=== PATIENT | male | born 1955 | race Two or more races ===

== ENCOUNTER 2019-09-24 09:30 | Inpatient (IN) | payer OTHER ==
[~2019-09-24] VITALS: Ht 167.6 cm; Wt 92.5 kg
--- NOTE | 2019-11-17 11:00 | NUR ---
[employer] translation services used to obtained medical history in Greenlandic with home health manager Marie ID # [id number].
[2019-11-19] VITALS (15 sets, daily range): BP systolic 127–155; BP diastolic 78–103
[2019-11-19] MEDS ORDERED: ceFAZolin sod 2 GM in NS 55 ML IVPB ONE (07:00)
--- NOTE | 2019-11-19 07:25 | Pre-Procedure Note/Attestation ---
Pre-Procedure Note/Attestation Complete Prior to Procedure Planned Procedure: not applicable Procedure Narrative: C56 artificial disc replacement Indications for Procedure Pre-Operative Diagnosis: C56 herniation Attestation I attest that I discussed the nature of the procedure; its benefits; risks and complications; and alternatives (and the risks and benefits of such alternatives ), prior to the procedure, with the patient (or the patient's legal delivery representative). I attest that, if there was a reasonable possibility of needing a blood transfusion, the patient (or the patient's legal delivery representative) was given the [facility] standardized written summary, pursuant to the Adal Brecken[place] Blood Safety Act ([place] Health and Safety Code # 1645, as amended). I attest that I re-evaluated the patient just prior to the surgery and that there has been no change in the patient's H&P, except as documented below: Casey Lockett MD November 19, 2019 07:25
--- NOTE | 2019-11-19 07:26 | Brief Operative Note ---
Immediate Post Operative Note Operative Note Chief Complaint: neck pain and radiculopathy Pre-op Diagnosis: C56 herniation Procedure: C56 artificial disc replacement Post-op Diagnosis: same as pre-op Findings: consistent w/pre-op dx studies Surgeon: Levy Heavy Duty Custodian: Larry Anesthesiologist: Oren Anesthesia: general Specimen: none Complications: none Condition: stable Fluids: IVF Estimated Blood Loss: minimal Drains: none Implant(s) used?: Yes - prodisc c sz 5 Casey Lockett MD November 19, 2019 07:26
[2019-11-19] MEDS ORDERED: Naloxone 0.4mg/ml Inj IVP PRN (07:30)
[2019-11-19] MEDS ORDERED: Morphine Sulfate 2mg/ml Inj(IV/IM USE ONLY) IV PRN (07:30)
[2019-11-19] MEDS ORDERED: HYDROmorphone 1mg/ml Carpuject IVP PRN (07:30)
[2019-11-19] MEDS ORDERED: HYDROcodone/Acetamin 7.5/325 tab ORAL PRN ×3 (07:30→08:15)
[2019-11-19] MEDS ORDERED: Morphine Sulfate 4mg/ml Inj (IV USE ONLY) IV PRN ×2 (07:30)
[2019-11-19] MEDS ORDERED: Chloraseptic Spray 20mL Bottle ORAL PRN (07:30)
[2019-11-19] MEDS ORDERED: Metoclopramide 10mg/2ml Inj IVP PRN ×2 (07:30→08:15)
[2019-11-19] MEDS ORDERED: HYDROcodone/Acetamin 5/325 tab ORAL PRN ×2 (07:30→08:15)
[2019-11-19] MEDS ORDERED: LR 1000ml 1,000 ML IVLG SCH (08:10)
--- NOTE | 2019-11-19 08:14 | Anethesia Preoperative Eval ---
Anesthesia Pre-op PMH/ROS General Date of Evaluation: November 19, 2019 Time of Evaluation: 09:38 Anesthesiologist: Oren ASA Score: ASA 2 Mallampati Score Class I : Soft palate, uvula, fauces, pillars visible Class II: Soft palate, uvula, fauces visible Class III: Soft palate, base of uvula visible Class IV: Only hard plate visible Mallampati Classification: Class II Surgeon: Levy Diagnosis: Neck Pain Surgical Procedure: ACDF C5-6 Anesthesia History: none Family History: no anesthesia problems Allergies: Coded Allergies: No Known Allergies (Unverified , 11/19/19) Medications: see eMAR Patient NPO?: Yes Past Medical History Cardiovascular: Reports: HTN Hematology/Immune: Reports: anemia Other: obesity - BMI 33 Anesthesia Pre-op Phys. Exam Physician Exam Last Vital Signs Date Time Temp Pulse Resp B/P (MAP) Pulse Ox O2 Delivery O2 Flow Rate FiO2 11/19/19 07:56 Room Air 11/19/19 07:55 97.7 78 20 133/86 (102) 98 Constitutional: NAD Neurologic: CN 2-12 intact Cardiovascular: RRR Respiratory: CTA Gastrointestinal: S/NT/ND Airway Exam Mallampati Score: Class II MO: full ROM: limited Teeth: missing Dentures: upper, lower Anesthesia Pre-op A/P Risk Assessment & Plan Assessment: ASA 2 Plan: GA, SED, GlideScope Status Change Before Surgery: No Pre-Antibiotics Dru Grams Ancef IV Given Within 1 Hr of Incision: Yes Time Given: 09:51 Jeet Lott MD November 19, 2019 08:14
[2019-11-19] MEDS ORDERED: oxyCODONE HCL/Acetaminophen 5/325mg ORAL PRN (08:15)
[2019-11-19] MEDS ORDERED: Labetalol 5mg/ml 20ml vial IV PRN (08:15)
[2019-11-19] MEDS ORDERED: Ketorolac 30mg Inj IV PRN ×2 (08:15)
[2019-11-19] MEDS ORDERED: LORazepam Inj 2mg/ml 1ml IV PRN (08:15)
[2019-11-19] MEDS ORDERED: Meperidine 25mg/0.5ml Inj (FOR RIGORS ONLY) IV PRN (08:15)
[2019-11-19] MEDS ORDERED: DiphenhydrAMINE 50mg/ml Inj IVP PRN (08:15)
[2019-11-19] MEDS ORDERED: fentaNYL 100 mcg/2 mL IV PRN (08:15)
[2019-11-19] MEDS ORDERED: Acetaminophen (Non formulary) 100 ML IV ONE (08:15)
[2019-11-19] MEDS ORDERED: Atropine Sulfate 0.4mg/ml inj IVP PRN (08:15)
[2019-11-19] MEDS ORDERED: Midazolam 2mg/2ml Inj IVP PRN (08:15)
[2019-11-19] MEDS ORDERED: Hydromorphone 0.5mg/0.5ml inj IVP PRN (08:15)
--- NOTE | 2019-11-19 08:15 | Immediate Post-Op Evaluation ---
Immediate Post-Op Evalulation Immediate Post-Op Evalulation Procedure: ACDF C5-6 Date of Evaluation: November 19, 2019 Time of Evaluation: 11:54 IV Fluids: 600 LR Blood Products: 0 Estimated Blood Loss: 50 Urinary Output: 200 Blood Pressure Systolic: 155 Blood Pressure Diastolic: 103 Pulse Rate: 78 Respiratory Rate: 16 O2 Sat by Pulse Oximetry: 98 Temperature (Fahrenheit): 97.1 Pain Score (1-10): 2 Nausea: No Vomiting: No Complications 0 Patient Status: awake, reacts, patent, extubated, none Hydration Status: adequate Dru Grams Ancef IV Given Within 1 Hr of Incision: Yes Time Given: 09:51 Jeet Lott MD November 19, 2019 08:15
[2019-11-19] MEDS ORDERED: fentaNYL 100 mcg/2 mL IV ONE ×2 (08:24→10:58)
[2019-11-19] MEDS ORDERED: Lidocaine 1% MPF 10mg/ml 5ml ONE (08:27)
[2019-11-19] MEDS ORDERED: Sodium Chloride 10ml vial INJ ONE (08:27)
[2019-11-19] MEDS ORDERED: Lidocaine 1% Plain 30 ml INJ ONE (08:38)
[2019-11-19] MEDS ORDERED: Glycopyrrolate 0.2mg/ml 1ml Vial ONE ×2 (08:53→11:08)
--- NOTE | 2019-11-19 08:56 | General Progress Note ---
Assessment/Plan Assessment/Plan: neck pain and radiculopathy C56 herniation ACDF PLAN 1. incentive spirometry 2. SCD 3. PT evaluation and therapy 4. Hydration 5. Pain management 6. discharge once stable with outpatient follow up Subjective Allergies: Coded Allergies: No Known Allergies (Unverified , 11/19/19) Subjective asked to follow up postop Objective Last 24 Hour Vital Signs Date Time Temp Pulse Resp B/P (MAP) Pulse Ox O2 Delivery O2 Flow Rate FiO2 11/19/19 07:56 Room Air 11/19/19 07:55 97.7 78 20 133/86 (102) 98 Height (Feet): 5 Height (Inches): 7.00 Weight (Pounds): 204 Javi Barriga MD November 19, 2019 08:56
[2019-11-19] MEDS ORDERED: Vancomycin 1gm vial IVPB ONE (09:17)
[2019-11-19] MEDS ORDERED: Thrombin 5000 units TOPIC ONE (09:17)
[2019-11-19] MEDS ORDERED: Bacitracin 50000 Units Vial ONE (09:17)
[2019-11-19] MEDS ORDERED: Gelfoam Size TOPIC ONE (09:17)
[2019-11-19] MEDS ORDERED: Rocuronium Bromide 100mg/10ml Inj IV ONE (09:29)
[2019-11-19] MEDS ORDERED: LR 1000ml ONE (09:30)
[2019-11-19] MEDS ORDERED: propofoL 1,000mg/100ml IV ONE (09:30)
[2019-11-19] MEDS ORDERED: Sterile Water Irrig 1000ml IRRIG ONE (09:30)
[2019-11-19] MEDS ORDERED: NS Irrig 1000ml ONE (09:30)
[2019-11-19] MEDS ORDERED: Neostigmine 1mg/ml 10ml Inj ONE (11:08)
--- NOTE | 2019-11-19 13:12 | NUR ---
NURSE NOTES: Handoff received from Isis CHILEL. Patient arrived to 3E safely and in stable condition, awake and alert x4. Vital signs on arrival are stable, Neuro check on arrival is WNL. Right hand 18g is patent and asymptomatic. Surgical site on anterior neck is dry and intact. Open skin is noted on right neck, per Isis CHILEL this is from surgical instrument used to hold neck and head. SCDs are on. Bed is low and locked, side rails up x2, call light within reach.
--- NOTE | 2019-11-19 13:50 | Diagnostic Imaging Report ---
INDICATION: Pain, intraoperative TECHNIQUE: Intraoperative imaging Fluoroscopy time: Origin 0.5 seconds Total dose: 0.17030 mGym2 Total number of images: 3 COMPARISON: None FINDINGS: Intraoperative images demonstrate a surgical tool projected at the anterior aspect of the C6 vertebral body. Subsequent images document anterior fusion and placement of a disc spacer at C5-6. IMPRESSION: Intraoperative imaging, as described
--- NOTE | 2019-11-19 13:59 | NUR ---
CASE MANAGEMENT: INITIAL REVIEW 64YR OLD MALE FROM HOME HERE FOR SURGERY CC: BACK PAIN SI:HERNIATED C5-6 97.7 78 20 133/86 98% ON RA IS:IN SURGERY NOW C5-6 ARTIFICIAL DISC REPLACEMENT \: TO MED SURG UNIT WHEN STABLE
--- NOTE | 2019-11-19 14:00 | NUR ---
NURSE NOTES: Patient was given PT instructions regarding movement precautions for spinal surgery.
--- NOTE | 2019-11-19 14:00 | NUR ---
P.T Note: P.T evaluation completed and tx initiated per spina protocol. Pt provided P.T instructions re: spinal/movement precaution an proper body mechanics to incorporate in ADL/functional mobilities thru written handouts, discussion and practice. After instructions pt was able to return demonstration and verbalize understanding. Pt is now currently functioning safely and independently within surgical guidelines . Pt is cleared for DC to home if medically stable and cleared by Physician.
[2019-11-19] MEDS ORDERED: NS w/KCl 20mEq 1000ml 1,000 ML IV SCH (15:00)
--- NOTE | 2019-11-19 15:30 | NUR ---
NURSE NOTES: Patient was able to void and tolerated post op cervical diet well. No complaints of pain or N/V.
--- NOTE | 2019-11-19 16:40 | NUR ---
NURSE NOTES: Dr. Lockett was contacted regarding patient's d/c order and med rec. Waiting for MD response.
[2019-11-19] MEDS ORDERED: Docusate 100mg cap ORAL SCH (18:00)
[2019-11-19] MEDS ORDERED: ceFAZolin sod 1 GM in D5W 55 ML IV SCH (18:00)
--- NOTE | 2019-11-19 19:20 | NUR ---
NURSE NOTES: Received report from RANJANA Hamlin. Rounds done, patient in stable condition. IV site intact, IVF infusing well. Patient tolerating po well. Anterior neck incision clean and dry, JANE with Dermabond. No s/s of infection noted. VSS. Provided discharge instructions. Will continue to monitor.
--- NOTE | 2019-11-19 19:25 | NUR ---
HAND-OFF: Report given to Stephanie CHILEL.
--- NOTE | 2019-11-19 22:10 | NUR ---
NURSE NOTES: All discharge instructions provided by charge nurse, patient verbalized understanding. Prescription given as requested by MD. Condition stable, VSS. IV discontinued, ID bands cut and patient discharged home via private car. Aware of follow up appt and s/s to report.
--- NOTE | 2019-11-20 10:45 | Operative Note - Dictated ---
DATE OF OPERATION: 11/19/2019 SURGEON: Casey Lockett MD, orthopedic spine surgeon. CO-SURGEON: Ruben Juarez MD. PREOPERATIVE DIAGNOSES: 1. Intractable neck pain. 2. Radiculopathy. 3. Herniation, C5-C6. 4. Neural foraminal stenosis C5-C6. 5. Stenosis. POSTOPERATIVE DIAGNOSES: 1. Intractable neck pain. 2. Radiculopathy. 3. Herniation, C5-C6. 4. Neural foraminal stenosis C5-C6. 5. Stenosis. PROCEDURE PERFORMED: 1. Anterior cervical discectomy and fusion of C5-C6 using Nuvasive Interlock Cage, size 6, a total of 1 mL of Osteocel three 13 mm screws, with the insertion of allograft Osteocel bone. 2. Use of intraoperative microscope. 3. Motor evoked potential monitoring. 4. Somatosensory evoked potential monitoring. 5. Supervision and interpretation of fluoroscopy. COMPLICATIONS: None. ANESTHESIA: General. ESTIMATED BLOOD LOSS: Less than 100 mL. INDICATIONS FOR SURGERY: This patient is a 64-year-old male who has a history of intractable neck pain, radiculopathy, herniation, C5-C6, neural foraminal stenosis C5-C6, stenosis. We tried a course of conservative management but despite this course there was still a significant component of persistent, recalcitrant neck pain and arm pain. The MRI demonstrated significant neural foraminal compromise secondary to disc herniations at C5-C6. We had a long discussion with Bryan regarding the risks and benefits of surgery. Our discussion included but was not limited to nonoperative management, chiropractic management, another epidural steroid injection as well definitive management in the form of surgery. We recommended an anterior cervical discectomy and fusion of C5-C6 using Nuvasive Interlock Cage, size 6, a total of 1 mL of Osteocel three 13 mm screws, with the insertion of allograft Osteocel bone as final definitive management. We reviewed the risks and benefits of surgery with the patient. Our discussion included a comprehensive review of the clinical issues and the nature of the clinical decision. We reviewed the alternatives, including doing nothing. The patient elected to proceed accordingly with anterior cervical discectomy and fusion of C5-C6. We had a long discussion regarding the risks, alternatives and benefits of surgery. Our description of the risks included a discussion in person as well as a signed consent which detailed all pertinent risks from the procedure itself. Briefly, our discussion included but was not limited to infection, bleeding, pseudarthrosis, spinal cord injury, neurovascular injury, dural tear, CSF leak, neuropathy, paralysis, permanent weakness/drop foot/drop arm, paresthesias, blindness, palsy and weakness. The patient understood there may be a need for a revision surgery or additional procedures. Approach-related complications including dysphonia, dysphagia, blindness, permanent vocal cord and neural injury, hematoma, swallowing and breathing difficulty. Medical complications were reviewed including liver, kidney, shock, cardiopulmonary failure, anesthesia complications including , swelling, damage to the musculature, larynx/voice injury or loss, esophagus/throat, trachea, blood vessels and muscles/muscular sprain and lungs/pneumothorax during this surgical procedure; injury to deeper structures may be temporary or permanent. After this review of risks, the patient understood these and elected to proceed. A written and verbal consent was given. We discussed the pros and cons of all the alternatives. We discussed the uncertainties associated with the decision. Afterwards I assessed the patient's understanding and explored their preferences. All questions were answered and no guarantees were given. Medical clearance was obtained prior to surgery. INTRAOPERATIVE FINDINGS: At C5-C6, I did not appreciate any dessication of the disk as we tend to see with degenerative processes. The disc itself was spongy and soft throughout and there was a tear noted along the posterior longitudinal ligament on the right side which is more consistent with a traumatic herniation. This tear was approximately 10 degrees cephalad to caudad. This was probed with a micro-set 1-B and 2-B curet as it led to the discovery of a herniated fragment posterior to the tear, which was encroaching on the spinal cord, thecal sac, and neural foraminal elements. The disc itself was resected. It was spongy, soft, not calcified or granular. The tear in the posterior longitudinal ligament led me to believe this is more traumatic in nature combined with a lack of degenerative findings seen during surgery. The disc itself was resected until we got the spinal cord, thecal sac, and neural elements. DESCRIPTION OF PROCEDURE: Under the benefit of general endotracheal anesthesia and with the assistance of the entire operative team, the patient was moved from the rney onto the operative table in the supine position. The head was secured and carefully positioned appropriately. Bilateral arms were secured with Gelpads and foam and all bony prominences were padded. For the bilateral lower extremities SCD and LYLY hose were placed for DVT prophylaxis. A surgical timeout was called which corroborated our planned procedure of anterior cervical discectomy and fusion of C5-C6. Preoperative antibiotics were administered within 30 minutes of the incision for antibiotic prophylaxis. Using lateral fluoroscopic radiography, the operative levels were delineated. Next the wound was prepped and draped with Chlorhexidine and sterile drapes. An incision was based on lateral fluoroscopy and we centered our incision at the C5-C6 interspace and next using a standard Roberts-Lazar anterior based approach the incision was taken down through the skin and subcutaneous tissues until the vertebral bodies and their corresponding disc spaces were visualized. A needle was placed into the interspace to confirm placement of the operative interspace and we performed the remainder of procedure under microscopic visualization. Next, using a bipolar and Bovie cautery to ensure meticulous hemostasis, the longus colli was mobilized bilaterally and retractors were placed deep to the longus colli bilaterally to address retraction. Next we turned our attention to the radical anterior discectomy. This was initially performed at C5-C6. First by using a 15 blade scalpel followed by narrow pituitaries and a micro-sect 5-B curette was used to denude the endplate of all cartilaginous tissue. Next using a [employer] Zach AM8 drillbit the vertebral endplates were carefully denuded until visualization of the posterior longitudinal ligament was possible. An endplate preparation was performed in the exact same fashion using an intervertebral sleep lab technician, sequential distraction was obtained throughout the disc space. We saw a tear/rent in the PLL and this was carefully mobilized and dissected using a micro-set 1-B curet until we visualized a broad-based disc herniation with compression of the spinal cord as well as neural foramina which was right more than left sided. This neural foraminal compression was carefully resected using a Kerrison-1 and Kerrison-2 rongeurs until complete decompression of the spinal cord was visualized and complete decompression of the neural foramina and nerve root therein as well as the axilla and lateral margin of the nerve root was visualized and subsequently completely decompressed. The family was notified at one hour intervals throughout the procedure to provide for consistent updates. We next turned our attention towards trialing our implant within the disc space. We initially tried size 5 and afterwards size 6 trial from the Nuvasive Interlock Cage at each level, which appeared to be appropriate under AP and lateral fluoroscopy as well as in terms of its height, depth, width and lack of toggle. The PEEK polyetheretherketone interbody cages were then both packed with allograft bone from Osteocel and local autograft bone matrix. Next these were then carefully advanced and secured into their intervertebral spaces under direct visualization and with supervision of AP and lateral fluoroscopic views. We next turned our attention towards plating. Plating was performed with [employer] interlock-C plating system. A total of three screws, 13 mm in length were inserted and confirmed under AP and lateral fluoroscopy and confirmed to be in excellent position. After a finger sweep we confirmed removal of all sponges. The retractor was removed and we next turned our attention to meticulous hemostasis with FloSeal and bipolar cautery. After the sponge and needle count was again found to be correct with our second count, we next turned our attention to closure. The wound was again copiously irrigated with antibiotic impregnated saline. Closure consisted of 4-0 clear nylon for the platysma, and 6-0 clear nylon for the superficial skin. Final skin closure and dressings consisted of Dermabond. Prior to final closure, a final radiograph was obtained which demonstrated the hardware is intact with excellent position throughout. The patient tolerated the procedure well. The patient was carefully extubated after the conclusion of surgery. We discussed the findings of the surgery with the family upon completion of the case. At this point the patient was transferred to the spine floor for further observation. Casey Lockett M.D. DR: VINAYAK JOB#: [id number] CC: ANDERSON
--- NOTE | 2019-11-20 17:45 | Discharge Summary ---
DATE OF ADMISSION: 11/19/2019 DATE OF DISCHARGE: 11/19/2019 PROCEDURE PERFORMED DURING ADMISSION: C5-C6 anterior cervical discectomy and fusion. REASON FOR ADMISSION: C5-C6 herniation. HOSPITAL COURSE/TREATMENT RENDERED: DISCHARGE PHYSICAL EXAMINATION: 1. The patient was ambulating with and without the assistance of physical therapy. 2. Prior to discharge home incision was clean and dry with minimal swelling. 3. Follows commands. 4. Alert and oriented. 5. Mock discontinued, voiding. 6. Incentive spirometer at bedside. 7. IVF hep locked. MOTOR: Demonstrates expected postoperative bulk and tone. Moves biceps, triceps, and deltoid musculature on command. Moves hip flexors, quadriceps, tibialis anterior, EHL, gastrocsoleus musculature on command as well. TREATMENT RENDERED: 1. Daily nursing care. 2. Physical Therapy. 3. Occupational Therapy. 4. Intravenous medications. 5. Oral medications. 6. Daily postoperative examinations by Spine surgery team. CONDITION OF PATIENT ON DISCHARGE: The condition on discharge is stable for discharge to home. The patient was discharged the same day. DISCHARGE INSTRUCTIONS: Our specific instructions relating to physical activity, medications, diet and followup care are detailed in our standard operative folder and were given to this patient prior to surgery. We will however summarize these briefly as stated below. Regarding physical activity we would like the patient to limit their flexion, extension and rotation. We also require a limitation on their bending lifting and twisting. All medication has been called in prior to surgery to their pharmacy of choice. They can resume their regular diet once tolerated. We would like them to shower and limit soaking the wound in a tub/Jacuzzi/the ocean for a period of one month or until the incision is completely healed. We will have them follow up in our office in three weeks' time for their regularly scheduled appointment. They understand to call our office tomorrow to schedule the time for their three week followup appointment. The patient will notify us should they experience any increase in the severity of pain, redness/swelling/ or drainage from their incision. Sirisha Wesley JOB#: [id number] CC:
--- NOTE | 2019-11-21 16:33 | Diagnostic Imaging Report ---
INDICATION: Pain, intraoperative TECHNIQUE: Intraoperative imaging Fluoroscopy time: Origin 0.5 seconds Total dose: 0.78435 mGym2 Total number of images: 3 COMPARISON: None FINDINGS: Intraoperative images demonstrate a surgical tool projected at the anterior aspect of the C6 vertebral body. Subsequent images document anterior fusion and placement of a disc spacer at C5-6. IMPRESSION: Intraoperative imaging, as described
[2019-11-22 07:20] VITALS: BP 127/81
--- NOTE | 2019-11-22 07:21 | 48 Hour Post Anesthesia Eval ---
Post Anesthesia Evaluation Procedure: ACDF C5-6 Date of Evaluation: Nov 22, 2019 Time of Evaluation: 07:00 Blood Pressure Systolic: 127 0: 81 Pulse Rate: 70 Respiratory Rate: 14 O2 Sat by Pulse Oximetry: 98 Airway: patent Nausea: No Vomiting: No Hydration Status: adequate Mental Status/LOC: patient returned to baseline Follow-up Care/Observations: na Post-Anesthesia Complications: none Follow-up care needed: N/A Daiana Wallace CRNA Nov 22, 2019 07:20
== END 2019-11-19 22:10 | disposition home or self-care (01) | DRG 473 ==
LOC: SDSOVERFLO 11-19 07:08 → 3E 11-19 14:36
PROC: 0RG10A0 Fusion of Cervical Vertebral Joint with Interbody Fusion Device, Anterior Approach, Anterior Column, Open Approach (ICD-10-PCS; principal; 2019-11-19 09:30)
PROC: 0RT30ZZ Resection of Cervical Vertebral Disc, Open Approach (ICD-10-PCS; principal; 2019-11-19 09:30)
DX: M50.122 Cervical disc disorder at C5-C6 level with radiculopathy (principal); M48.02 Spinal stenosis, cervical region
CPT/HCPCS: 36415; 72040; 76000; 86850; 86900; 86901; 87081; 94003; 94150; 96360; 96361; J2405; J2710